=== PATIENT | female | born 1980 | race African-American/Black ===

== ENCOUNTER 2020-04-26 07:17 | Outpatient (CLI) | payer OTHER, SELFPAY ==
[2020-04-26 07:48] LABS: Hemoglobin 10.3 g/dL (12.0-15.0); Mean Corpuscular HGB Conc 33.2 g/dl (32-36); Mean Corpuscular Hemoglobin 28.6 pg (26-34); Mean Corpuscular Volume 86.1 fl (80-100); Mean Platelet Volume 10.4 fl (7.4-10.4); Platelet Count Result 216 k/mm3 (150-375); Red Cell Distribution Width 13.4 % (11.5-14.5); White Blood Count 10.5 K/mm3 (4.5-10.0)
[2020-04-28 11:33] LABS: Rapid Plasma Reagin Non-Reactive (NonReactive)
== END 2020-04-26 07:18 | disposition home or self-care (01) ==
PROVIDERS: PCP Nurse Practitioner Family; Visit Provider Obstetrics & Gynecology
DX: Z34.93 Encounter for supervision of normal pregnancy, unspecified, third trimester (principal); Z3A.00 Weeks of gestation of pregnancy not specified
CPT/HCPCS: 36415; 85027; 86592; 86850; 86900; 86901

== ENCOUNTER 2020-04-28 07:09 | Inpatient (IN) | payer OTHER, SELFPAY ==
--- NOTE | 2020-04-27 07:25 | PM.IMHP ---
H&P: HPI History of Present Illness Date/Time: 04/27/20 07:25 Chief complaint: previous csection Narrative: Jayla Roman is a 39 year old female The 3 P2 0 0, whose last menstrual period was 08/13/2019, EDC is 05/05/2020, presents at 39 weeks gestation for repeat section. Her been complicated by gestational diabetes which is diet controlled. She is negative for group B strep. She has advanced maternal age but had normal and a NIPT findings Review of Systems Review of Systems: All systems reviewed & are unremarkable except as noted in HPI and below PMFSH Family History Family History Other No pertinent family history Social History Social History Substance use: never Gender identity (if verbalized by the patient): Female Spiritual care concerns: No Meds Home Medications and Allergies Home Medications Medication Instructions Recorded Confirmed Type PNV cmb#95-ferrous fumarate-FA 1 tablet PO DAILY 04/24/20 04/24/20 History [] Allergies Allergy/AdvReac Type Severity Reaction Status Date / Time latex Allergy Hives Verified 04/24/20 15:46 Exam Const: General: no acute distress Eyes: General: appearance normal, both eyes and all related structures Neck: Neck: supple and no JVD Thyroid: thyroid normal Resp: Effort & Inspection: normal respiratory effort Auscultation: clear to auscultation bilaterally Cardio: Rate: regular rate Rhythm: regular rhythm GI: Inspection: non-distended GI Palp: Yes Soft to palpation, No Tenderness to palpation present (GI) and No Guarding due to palpation present (GI) Auscultation: normal bowel sounds : External Female Exam: normal external appearance Speculum Exam - Cervix: Cervical os closed Bimanual exam- vagina & uterus: uterine size normal ( gravid soft uterus) Bimanual Exam- Adnexa, other: normal adnexae Skin: General skin exam: no rashes or lesions noted Extrem: General: normal to inspection and no edema Psych: Mental Status: mental status grossly normal Affect: normal affect Assessment and Plan Additional Plan impression: Term with previous section x2 Plan: Repeat low-transverse section
[2020-04-28] VITALS (48 sets, daily range): BP systolic 94–111; BP diastolic 38–64; PULSE 49–82; RESP 12–19; TEMP 36.2–37.1; O2SAT 95–99; BMI 46.3
--- NOTE | 2020-04-28 06:15 | WPDHPUPDATE1 ---
History and Physical Update Update Date/Time: 04/28/20 06:15 History and Physical has been reviewed, including an updated exam of the patient. There are NO changes in the patient's condition. Risks, benefits, and alternatives have been discussed and questions answered. Patient agrees to proceed with procedure.
--- NOTE | 2020-04-28 07:42 | LDADM ---
This patient, Jayla Roman, was admitted to Labor/Delivery/Recovery 119 on 04/28/20 at 07:09. Plans for labor, pain management and were discussed with patient. Patient/family oriented to hospital policies and general routines including ID bracelet, bed and alarms, visiting hours, pain management, procedures, bathroom and other care routines, personal items, smoking policy, room service/diet and guest tray routines, infant security routines, call light, and visiting hours. Patient/Family are encouraged to report perceived risks to care and to ask questions if they do not understand what they are told or what they should do. See OBIX for further documentation.
--- NOTE | 2020-04-28 08:00 | P.PNAN_ITS ---
Anes - Initial Pre Proc Eval Procedure: Operation Date: 04/28/20 09:00 Proposed Procedures p Repeat Section - Jerod Mercedes MD Date/Time: 04/28/20 08:00 Surgeon: Jerod Mercedes MD Pre Op Diagnosis: Repeat C/S Patient Data Age: 39 Gender: F Height: 5 ft Weight: 107.6 kg Last Vital Signs Pulse 78 04/28/20 07:56 BP 94/44 L 04/28/20 07:56 Allergies Allergy/AdvReac Type Severity Reaction Status Date / Time latex Allergy Hives Verified 04/24/20 15:46 Home Medications Medication Instructions Recorded Confirmed Type PNV cmb#95-ferrous fumarate-FA 1 tablet PO DAILY 04/24/20 04/24/20 History [] hydrocodone-acetaminophen [[place]] 1 tablet PO Q4H PRN #30 tablet 04/28/20 Rx Patient hx anesthesia problems: none Family hx anesthesia problems: none PMFSH Past Medical History Medical History (Updated 04/28/20 @ 08:00 by Jerod Cordoba MD) Gestational diabetes Obesity Surgical History Surgical History (Updated 04/28/20 @ 08:01 by Jerod Cordoba MD) History of section Family History Family History Other No pertinent family history Social History Social History Smoking status: Never smoker Substance use: never Gender identity (if verbalized by the patient): Female Spiritual care concerns: No Anes - Eval Final PreProcedure Day of Procedure 04/28/20 08:00 Patient weight: morbidly obese Heart: regular rate and rhythm Lungs: clear to auscultation Airway: Mallampati scale class II Neurological: alert and oriented Last oral intake: >/= 8 hours ASA classification: III Emergent: no Anesthetic plan: proceed Anesthesia type and monitoring: regional spinal and standard monitoring Informed Consent: The patient's anesthetic plan and its attendant risks and benefits were discussed with the patient/family/POA. Questions were solicited and answers provided to the satisfaction of the patient/family/POA.
[2020-04-28] MEDS: LACTATED RINGERS 1,000 ML 125 ML IV CONT ×2 (08:10→08:59)
[2020-04-28 08:17] LABS: Basophils Percent Auto 0.3 % (0.2-1.2); Eosinophils Absolute Auto 0.1 K/mm3 (0-0.3); Hemoglobin 10.9 g/dL (12.0-15.0); Immature Granulocyte Absolute 0.04 K/mm3 (0.00-0.031); Immature Granulocyte Percent A 0.4 % (0-0.5); Lymphocytes Absolute Auto 2.24 K/mm3 (0.9-3.2); Mean Corpuscular Hemoglobin 28.6 pg (26-34); Mean Corpuscular Volume 86.6 fl (80-100); Mean Platelet Volume 10.5 fl (7.4-10.4); Monocytes Absolute Auto 0.9 K/mm3 (0.1-0.6); Monocytes Percent Auto 8.7 % (2.6-8.5); Neutrophils Absolute Auto 6.9 K/mm3 (1.3-6.7); Neutrophils Percent Auto 67.6 % (45.5-73.1); Platelet Count Result 234 k/mm3 (150-375); Red Blood Count 3.81 M/mm3 (4.2-5.4); Red Cell Distribution Width 13.7 % (11.5-14.5); White Blood Count 10.2 K/mm3 (4.5-10.0)
[2020-04-28 08:29] LABS: Glucose 111 mg/dL (65-105)
[2020-04-28] MEDS: ceFAZolin 2 GM/D5W 50 ML 2 GM/50 ML BAG IVPB (09:00)
[2020-04-28 09:13] LABS: HIV 1/2 Ab P24 Ag Result Negative (Negative)
--- NOTE | 2020-04-28 09:58 | PM.PROC ---
Procedure Note - Detailed Date of procedure: 04/28/20 Pre-op diagnosis: Repeat C/S Surgeon: Jerod Mercedes MD Postop diagnosis: Term with previous section Procedure: Repeat low-transverse section Findings: Female infant 7 lb 6 oz with Apgars of 8 and 9 at 1 and 5 minutes respectively. A fair amount of adhesions from omentum to the anterior wall and the uterus to the anterior wall. Normal-appearing ovaries and tubes. A large fibroid at right fundal portion of the uterus Q BL: 555cc Anesthesia: Spinal Complications: None Description of procedure: The patient is prepped and draped in the normal sterile fashion and placed in the supine position. Under excellent spinal anesthetic the abdomen was entered through the previous Pfannenstiel incision. This incision was carried upward outward fashion to the fascia which was opened in an upward outward fashion bilaterally. The underlying muscles were sharply dissected. The parietal peritoneum was elevated by Jocelyn clamps and entered by sharp dissection. Multiple adhesions were seen from the uterus to the anterior portion of the abdominal wall as well as the 8 bladder being quite high serial layer by layer dissection was undertaken until the bladder was able to be pushed inferiorly to the away from the cervix and uterus. A bladder blade was placed and a low transverse incision made. The head was delivered in the MUSA position was noted to be very high. Anterior posterior shoulder delivered spontaneously. The cord clamp was clamped x2 and cut. The passed off the table with an excellent cry given Apgars of 8 [id number] and 9 [id number]. Cord blood was drawn. The uterus was inspected for any debris. The uterus was then closed with continuous running locking 0 Vicryl from lateral edge to lateral edge. This was followed by a 2nd imbricating layer of 0 Vicryl from lateral edge to lateral edge. Hemostasis was assured ovaries and tubes appeared within normal limits as noted the small fibroid was seen and the uterus returned to the abdomen. The uterine incision was inspected 1 last time noted be hemostatic. The raw area was prepped cold with hematuria. The laps removed and accounted for. The fascia closed with continuous running 0 Vicryl from lateral edge to midline bilaterally. Irrigation subcutaneous layer was undertaken. The skin was closed with 4 O Monocryl and glue. Blood loss was estimated [id number]. All sponge, needle, instrument counts were correct. Mom and baby are doing fine at the time of this dictation
--- NOTE | 2020-04-28 12:30 | PC.NURSE ---
Patient transferred to post room #285 per stretcher from labor and delivery. Support person present. Oriented to unit, room, information board, rooming in, admission packet and security measures. Patient verbalizes understanding.
[2020-04-28] MEDS: OXYTOCIN 30 UNITS/NS 500 ML 30 UNITS/500 ML BAG 125 UNITS IV CONT (12:38)
--- NOTE | 2020-04-28 14:45 | PC.NURSE ---
Consult with pt., upon entering mother has infant latched in cradle positioning. Infant was latched correctly. Infant nursed eagerly, with steady draws and frequent swallowing noted. Reviewed signs of a correct latch, effective nursing and suck swallow ratio. Mother reported she could feel infant was latched more deeply and had no discomfort. was able to maintain latch without discomfort to mother. Nipple care reviewed. Reviewed feeding cues, frequencies, duration of feedings, feeding elimination flow sheet, and signs of adequate intake. Reviewed positioning/alignment in cross cradle, holding breast in U hold and guided asymmetrical latch on. Discussed rational for each for latch if mother has nipple tenderness. Instructed mother to call out for RN assistance if she is unable to latch for feeding or she has discomfort with nursing. Instructed feeding should be initiated three hours from start of last feeding or if feeding cues are noted before. Mother voiced understanding of information shared.
[2020-04-28] MEDS: DEXTROSE 5%/0.45% SOD CHL 1,000 ML 125 ML IV CONT (16:45)
[2020-04-28] MEDS: SIMETHICONE 80 MG TAB.CHEW PO (22:50)
[2020-04-28] MEDS: IBUPROFEN 600 MG TABLET PO (22:50)
[2020-04-29 05:00] VITALS: BP 109/49; PULSE 65; RESP 16; TEMP 36.7
[2020-04-29] MEDS: IBUPROFEN 600 MG TABLET PO ×2 (05:00→16:19)
[2020-04-29] MEDS: SIMETHICONE 80 MG TAB.CHEW PO (05:00)
[2020-04-29 05:36] LABS: Basophils Percent Auto 0.2 % (0.2-1.2); Eosinophils Absolute Auto 0.1 K/mm3 (0-0.3); Eosinophils Percent Auto 0.6 % (0-4.4); Hemoglobin 9.6 g/dL (12.0-15.0); Immature Granulocyte Absolute 0.07 K/mm3 (0.00-0.031); Immature Granulocyte Percent A 0.5 % (0-0.5); Lymphocytes Absolute Auto 2.04 K/mm3 (0.9-3.2); Lymphocytes Percent Auto 13.3 % (18.3-44.2); Mean Corpuscular HGB Conc 33.1 g/dl (32-36); Mean Corpuscular Hemoglobin 28.5 pg (26-34); Mean Corpuscular Volume 86.1 fl (80-100); Mean Platelet Volume 11.1 fl (7.4-10.4); Monocytes Absolute Auto 1.1 K/mm3 (0.1-0.6); Neutrophils Percent Auto 78.4 % (45.5-73.1); Platelet Count Result 196 k/mm3 (150-375); Red Blood Count 3.37 M/mm3 (4.2-5.4); Red Cell Distribution Width 13.6 % (11.5-14.5); White Blood Count 15.3 K/mm3 (4.5-10.0)
--- NOTE | 2020-04-29 06:39 | P.PNOB_ITS ---
OB - PN: Subj Subjective Date/time seen: 04/29/20 06:39 Patient comments: no complaints and pain well controlled baby status: doing well and nursing well OB - PN: Obj Data Labs CBC & Chem 7: 04/29/20 05:03 04/28/20 08:04 Labs: Laboratory Results - last 24 hr 04/28/20 04/28/20 04/28/20 08:04 08:04 08:04 WBC 10.2 H RBC 3.81 L Hgb 10.9 L Hct 33.0 L MCV 86.6 MCH 28.6 MCHC 33.0 RDW 13.7 Plt Count 234 MPV 10.5 H Immature Gran % (Auto) 0.4 Neut % (Auto) 67.6 Lymph % (Auto) 22.0 [place] % (Auto) 8.7 H Eos % (Auto) 1.0 Baso % (Auto) 0.3 Lymph # (Auto) 2.24 [place] # (Auto) 0.9 H Eos # (Auto) 0.1 Baso # (Auto) 0.0 Abs Immat Gran (auto) 0.04 H Absolute Neuts (auto) 6.9 H Absolute Nucleated RBC 0.0 Nucleated RBC % 0.0 Glucose 111 H HIV 1&2 Ab/P24 Ag 4thGn Negative 04/29/20 05:03 WBC 15.3 H RBC 3.37 L Hgb 9.6 L Hct 29.0 L MCV 86.1 MCH 28.5 MCHC 33.1 RDW 13.6 Plt Count 196 MPV 11.1 H Immature Gran % (Auto) 0.5 Neut % (Auto) 78.4 H Lymph % (Auto) 13.3 L [place] % (Auto) 7.0 Eos % (Auto) 0.6 Baso % (Auto) 0.2 Lymph # (Auto) 2.04 [place] # (Auto) 1.1 H Eos # (Auto) 0.1 Baso # (Auto) 0.0 Abs Immat Gran (auto) 0.07 H Absolute Neuts (auto) 12.0 H Absolute Nucleated RBC 0.0 Nucleated RBC % 0.0 Glucose HIV 1&2 Ab/P24 Ag 4thGn OB - PN A/P Plan day: 1 Plan: routine care Time Spent With Patient Time: Total time spent is greater than 50% in coordination of care (as documented) at patient's floor/unit and/or counseling patient: Time with patient: less than 15 minutes Review of Systems Review of Systems: All systems reviewed & are unremarkable except as noted in HPI and below Exam Const: General: no acute distress Eyes: General: appearance normal, both eyes and all related structures Neck: Neck: supple and no JVD Thyroid: thyroid normal Resp: Effort & Inspection: normal respiratory effort Auscultation: clear to auscultation bilaterally Cardio: Rate: regular rate Rhythm: regular rhythm GI: Inspection: normal to inspection and incision (cdi) Percussion: Yes normal to percussion : General: Yes bladder normal to palpation External Female Exam: normal external appearance Speculum Exam - Vagina: normal vaginal discharge and No vaginal bleeding Speculum Exam - Cervix: nontender Bimanual exam- vagina & uterus: bladder normal to palpation and No Cervical tenderness present OB/external & speculum: No vaginal bleeding Skin: General skin exam: no rashes or lesions noted Extrem: General: normal to inspection and no edema Psych: Mental Status: mental status grossly normal Affect: normal affect
--- NOTE | 2020-04-29 07:45 | WPDANLDNPN2 ---
Anes-Prog Note L&D-Neuraxial Date/Time: 04/29/20 07:45 Neuraxial medications: intrathecal PF morphine Opiod-related complaints: none Patient feedback: Patient satisfied with post-operative pain management.
--- NOTE | 2020-04-29 07:45 | WPDANLDPN2 ---
Anes-Prog Note L&D Date/Time: 04/29/20 07:45 Comfortable throughout: section Neuraxial method: spinal Epidural/Spinal procedure site: clean & non-tender Neuro status: Neuro function grossly intact. Cardiovascular status: normal Respiratory status: normal Airway patency: baseline Mental status: baseline Post-Op hydration status: normal Vital Signs: Last Vital Signs Temp 36.7 C 04/29/20 05:00 Pulse 65 04/29/20 05:00 Resp 16 04/29/20 05:00 BP 109/49 L 04/29/20 05:00 Pulse Ox 96 04/28/20 15:55 I/O: Intake & Output 04/28/20 04/28/20 04/29/20 15:59 23:59 07:59 Intake Total 1550 2500 Output Total 990 858 1341 Balance 1255 1800 -1500 Post-procedural complaints: none Patient feedback: Patient satisfied with anesthetic care.
[2020-04-29 08:00] VITALS: BP 111/62; PULSE 78; RESP 18; TEMP 37.1; O2SAT 99
[2020-04-29] MEDS: DOCUSATE SODIUM 100 MG CAPSULE PO ×2 (09:04→16:18)
[2020-04-29] MEDS: MULTIVIT/MIN/PREN/FOL AC/IRON TABLET 1 TAB PO (09:04)
[2020-04-29] MEDS: POLYSACCHARIDE IRON COMPLEX 150 MG CAPSULE PO ×2 (09:04→16:18)
--- NOTE | 2020-04-29 13:50 | PC.NURSE ---
Mother called out for assist. Mother reports infant was eagerly latching without discomfort, mother feels since she has given a pacifier has had issues with latching and has began supplementation at times. Mother wishes observation and advise. Reviewed feeding cues, frequencies, duration of feedings, feeding elimination flow sheet, and signs of adequate intake. Demonstrated stimulation techniques to wake for feeding. Assisted with infant to breast. Reviewed positioning/alignment in cross cradle, holding breast in U hold and guided asymmetrical latch on. Discussed rational for each. Infant was able to latch correctly within a few attempts. Infant nursed eagerly, with steady draws and frequent swallowing noted. Reviewed signs of a correct latch, effective nursing and suck swallow ratio. Infant was able to maintain latch without discomfort to mother. Nipple care reviewed. Suggested mother stimulate while feeding to keep infant awake and nursing effectively for increased intake and to assist with maintaining deep latch. Demonstrated how to adjust latch more deeply while feeding. Suggested if infant has breastfed on both breasts and continues to show feeding cues, give supplementation 15-20mls with paced feeding. Instructed mother to call out for RN assistance if she is unable to latch infant for feeding or she has discomfort with nursing. Instructed feeding should be initiated three hours from start of last feeding or if feeding cues are noted before. Mother voiced understanding of information shared.
[2020-04-29 19:40] VITALS: BP 106/47; PULSE 74; RESP 16; TEMP 36.6
--- NOTE | 2020-04-30 07:25 | WPDANLDPN2 ---
Anes-Prog Note L&D Date/Time: 04/30/20 07:25 Comfortable throughout: section Neuraxial method: spinal Epidural/Spinal procedure site: clean & non-tender Neuro status: Neuro function grossly intact. Cardiovascular status: normal Respiratory status: normal Airway patency: baseline Mental status: baseline Post-Op hydration status: normal Vital Signs: Last Vital Signs Temp 36.6 C 04/29/20 19:40 Pulse 74 04/29/20 19:40 Resp 16 04/29/20 19:40 BP 106/47 L 04/29/20 19:40 Pulse Ox 99 04/29/20 08:00 Post-procedural complaints: none Patient feedback: Patient satisfied with anesthetic care.
--- NOTE | 2020-04-30 07:26 | WPDANLDNPN2 ---
Anes-Prog Note L&D-Neuraxial Date/Time: 04/30/20 07:26 Neuraxial medications: intrathecal PF morphine Opiod-related complaints: none Patient feedback: Patient satisfied with post-operative pain management.
--- NOTE | 2020-04-30 07:41 | PM.DS ---
DS: Admitting Diagnosis Admitting Diagnosis Admitting Diagnosis: Repeat C/S DS: Summary Time Spent with Patient Time attestation: Total time spent providing and/or coordinating discharge services: Exam Const: General: no acute distress Eyes: General: appearance normal, both eyes and all related structures Neck: Neck: supple and no JVD Thyroid: thyroid normal Resp: Effort & Inspection: normal respiratory effort Auscultation: clear to auscultation bilaterally Cardio: Rate: regular rate Rhythm: regular rhythm GI: Inspection: non-distended GI Palp: Yes Soft to palpation, No Tenderness to palpation present (GI) and No Guarding due to palpation present (GI) Auscultation: normal bowel sounds : General: Yes bladder normal to palpation External Female Exam: normal external appearance Speculum Exam - Vagina: normal vaginal discharge and No vaginal bleeding Speculum Exam - Cervix: nontender Bimanual exam- vagina & uterus: bladder normal to palpation and No Cervical tenderness present OB/external & speculum: No vaginal bleeding Skin: General skin exam: no rashes or lesions noted Extrem: General: normal to inspection and no edema Psych: Mental Status: mental status grossly normal Affect: normal affect Discharge Plan Discharge Attending physician on discharge: Jerod Mercedes Discharging Clinician: Jerod Mercedes Patient Disposition: Home, Self-Care Activity: may shower, no straining, may drive after 2 weeks and pelvic rest Diet: heart healthy Wound Care Instructions: follow printed instructions and incision open to air Patient Instructions: Antibiotic Form Stand Alone Forms: General Discharge Information Follow-up/Referrals: Jerod Mercedes MD [Physician] - Discharge Medications: New hydrocodone-acetaminophen [[place]] 5-325 mg tablet 1 tablet PO Q4H PRN (Reason: pain) Qty: 30 RF: 0 Continued PNV cmb#95-ferrous fumarate-FA [] 28 mg iron- 800 mcg Tablet 1 tablet PO DAILY RF: 0 Date of admission: 04/28/20 07:09 Primary Care Provider: Sai,Cass Holloway Admitting Provider: Jerod Mercedes Attending physician on admission: Jerod Mercedes
--- NOTE | 2020-04-30 07:42 | PM.OBPNVD ---
OB - PN: Subj Subjective Date/time seen: 04/30/20 07:42 Patient comments: no complaints and pain well controlled baby status: doing well and nursing well OB - PN: Obj Data Labs CBC & Chem 7: 04/29/20 05:03 04/28/20 08:04 OB - PN A/P Plan day: 2 Plan: routine care, discharge home and follow up 6 weeks (4 weeks) Time Spent With Patient Time: Total time spent is greater than 50% in coordination of care (as documented) at patient's floor/unit and/or counseling patient: Time with patient: less than 15 minutes Review of Systems Review of Systems: All systems reviewed & are unremarkable except as noted in HPI and below Exam Const: General: no acute distress Eyes: General: appearance normal, both eyes and all related structures Neck: Neck: supple and no JVD Thyroid: thyroid normal Resp: Effort & Inspection: normal respiratory effort Auscultation: clear to auscultation bilaterally Cardio: Rate: regular rate Rhythm: regular rhythm GI: Inspection: normal to inspection and incision (cdi) Percussion: Yes normal to percussion : General: Yes bladder normal to palpation External Female Exam: normal external appearance Speculum Exam - Vagina: normal vaginal discharge and No vaginal bleeding Speculum Exam - Cervix: nontender Bimanual exam- vagina & uterus: bladder normal to palpation and No Cervical tenderness present OB/external & speculum: No vaginal bleeding Skin: General skin exam: no rashes or lesions noted Extrem: General: normal to inspection and no edema Psych: Mental Status: mental status grossly normal Affect: normal affect
[2020-04-30] MEDS: POLYSACCHARIDE IRON COMPLEX 150 MG CAPSULE PO (07:54)
[2020-04-30] MEDS: DOCUSATE SODIUM 100 MG CAPSULE PO (07:54)
[2020-04-30] MEDS: MULTIVIT/MIN/PREN/FOL AC/IRON TABLET 1 TAB PO (07:54)
[2020-04-30 08:00] VITALS: BP 109/56; PULSE 77; RESP 14; TEMP 36.6; O2SAT 98
[2020-04-30] MEDS: IBUPROFEN 600 MG TABLET PO (08:13)
--- NOTE | 2020-04-30 10:25 | PC.NURSE ---
Observed mother is able to independently latch with appropriate positioning/alignment. She denies any nipple discomfort, is feeding as required and waking infant to feed if needed. has had at least 8 effective feedings in the past 24 hours, and is currently meeting outcomes for weight, output, jaundice and feeding frequencies. Mother will continue to supplement after feedings until her milk supply is well established and she feels infant is satisfied after feedings. Suggested mother continue feeding/elimination flowsheet at home observing for required feedings and output. Mother states she feels confident to continue effective /supplementation at home. Reviewed transition to breast milk, signs of adequate intake, and engorgement/relief. Instructed to call ICP if intake/output less than required. Reviewed regular medications mother is taking. Information provided per April. Reviewed community resources on the [facility] website and in the Mom/Baby guide. Information on outpatient services provided. Mother has no further questions at this time.
== END 2020-04-30 11:40 | disposition home or self-care (01) | DRG 788 ==
LOC: ANHLDR 07:14 → ANHOB2 12:36
PROVIDERS: Admitting Provider Obstetrics & Gynecology; PCP Nurse Practitioner Family; Visit Provider Obstetrics & Gynecology
PROC: 10D00Z1 Extraction of Products of Conception, Low, Open Approach (ICD-10-PCS; CPT 59514; principal; 2020-04-28 09:00)
DX: O34.211 Maternal care for low transverse scar from previous cesarean delivery (principal); Z37.0 Single live birth; Z3A.39 39 weeks gestation of pregnancy; O24.420 Gestational diabetes mellitus in childbirth, diet controlled; O99.214 Obesity complicating childbirth; E66.01 Morbid (severe) obesity due to excess calories; O34.13 Maternal care for benign tumor of corpus uteri, third trimester; D25.9 Leiomyoma of uterus, unspecified
CPT/HCPCS: 36415; 82947; 85025; 86703; A9270; G0432; J0131; J0690; J2274; J2370; J2405; J2590; J7120

== ENCOUNTER 2021-06-02 15:34 | Outpatient (CLI) | payer OTHER, SELFPAY ==
--- NOTE | 2021-06-02 | ECG_ITS ---
Measurements Intervals [place] Rate: 60 P: 46 CO: 165 QRS: -2 QRSD: 109 T: 30 QT: 425 QTc: 428 Interpretive Statements SINUS RHYTHM WITH SINUS ARRHYTHMIA DELAYED PRECORDIAL R/S TRANSITION CONSIDER INFERIOR INFARCT, AGE INDETERMINATE BORDERLINE ST-T WAVE ABNORMALITY- ANTERIOR LEADS ABNORMAL ECG Electronically Signed On 06-02-2021 19:11:14 CDT by Stephen Nugent D.O.
== END 2021-06-02 15:35 | disposition home or self-care (01) ==
PROVIDERS: PCP Nurse Practitioner Family; Visit Provider Obstetrics & Gynecology
DX: Z01.818 Encounter for other preprocedural examination (principal); R94.31 Abnormal electrocardiogram [ECG] [EKG]
CPT/HCPCS: 93005